=== PATIENT | male | born 1990 | race Caucasian/White ===

== ENCOUNTER 2020-02-01 16:51 | Emergency (ER) | payer OTHER, SELFPAY ==
[2020-02-01 17:02] VITALS: BP 119/66; PULSE 71; RESP 16; TEMP 36.8; O2SAT 99
--- NOTE | 2020-02-01 17:06 | ED.MALEGU ---
HPI - Male Genitourinary General Chief complaint: Urogenital-Male Stated complaint: blood in urine Time Seen by Provider: 02/01/20 17:12 Source: patient and RN notes reviewed Mode of arrival: ambulatory Limitations: no limitations History of Present Illness HPI Narrative: 29 year old male presents to express care with complaints of noting blood in his urine this morning, intermittent dull pain for the past 4 months to upper right lower abdomen and into right flank. Patient states that he ran this morning about 3 mile and noted bright red blood in his urine after running, with next urination noted to be less blood in urine and then no further noted blood as day has progressed. Patient states no pain or burning with urination, no fever, chills or sweats. Patient states history of stone in right kidney requiring lithotripsy and stent placement in September of 2018 . Related Data Home Medications Medication Instructions Recorded Confirmed No Home Medications 02/01/20 02/01/20 Allergies Allergy/AdvReac Type Severity Reaction Status Date / Time No Known Allergies Allergy Verified 02/01/20 17:07 Review of Systems Review of Systems: Narrative: CONSTITUTIONAL: Denies fever, chills, or sweats. EYES: Denies visual changes, redness, or discharge. ENT: Denies rhinorrhea, congestion, sore throat, or otalgia. CARDIOVASCULAR: Denies chest pain, palpitations, or edema. RESPIRATORY: Denies cough or dyspnea. GASTROINTESTINAL: positive intermittent right abdominal pain radiating to right flank, no nausea, vomiting, or diarrhea. GENITOURINARY: Denies dysuria, positive episodes of hematuria today. SKIN: Denies rash or itching. MUSCULOSKELETAL: Denies back pain, joint pain, or myalgia. NEUROLOGIC: Denies headache, numbness, or weakness. PSYCHIATRIC: Denies anxiety or depression. All systems reviewed & are unremarkable except as noted in HPI and below PMFSH Past Medical History Medical History (Updated 02/01/20 @ 17:27 by More Knapp NP) Kidney stones Surgical History Surgical History (Updated 02/01/20 @ 17:30 by More Knapp NP) History of ankle surgery History of lithotripsy Social History Social History (Updated 02/01/20 @ 17:29 by More Knapp NP) Smoking status: Never smoker Living arrangements: dorm student housing Occupation/Education: student Gender identity (if verbalized by the patient): Male Comments At time of signature, agree with nursing past medical, surgical, social history. There is no relevant family history pertinent to the presenting complaint Exam Narrative: Exam Narrative: GENERAL: Well-appearing, well-nourished, and in no acute distress. HEAD: Normocephalic, atraumatic. EYES: PERRLA and EOMI. ENT: Nares clear, no rhinorrhea or epistaxis. Mucous membranes moist. NECK: Supple.no lymphadenopathy CHEST: Clear to auscultation. No respiratory distress. HEART: Regular rate and rhythm. No murmur heard. Normal peripheral pulses. ABDOMEN: Soft, non tender to palpation, non distended, normal active bowel sounds. states intermittent right abdominal pain, radiates to right flank for 4 months, denies any acute pain at present, 2 episodes of hematuria today, none at present time according to urine dip EXTREMITIES: Normal range of motion. No edema. SKIN: Warm, dry, no rash. NEURO: No focal deficits. Alert and oriented x3. Course Vital Signs Vital signs: Vital Signs Temperature 36.8 C 02/01/20 17:02 Pulse Rate 71 02/01/20 17:02 Respiratory Rate 16 02/01/20 17:02 Blood Pressure 119/66 02/01/20 17:02 Pulse Oximetry 99 02/01/20 17:02 Temperature 36.8 C 02/01/20 17:02 Pulse Rate 71 02/01/20 17:02 Respiratory Rate 16 02/01/20 17:02 Blood Pressure 119/66 02/01/20 17:02 Pulse Oximetry 99 02/01/20 17:02 MDM - Male Genitourinary Differential Diagnosis Differential diagnosis: Likely urinary tract infection, urethritis and other (kidney stone, passing of kid
== END 2020-02-01 17:34 | disposition home or self-care (01) ==
PROVIDERS: Emergency Provider Registered Nurse
DX: R31.9 Hematuria, unspecified (principal); Z87.442 Personal history of urinary calculi
CPT/HCPCS: 81003; 87086; 87088; 99213; G0463